=== PATIENT | male | born 1950 | race Caucasian/White ===

== ENCOUNTER → 2023-07-27 12:54 | Outpatient (REF) | payer MEDICARE, OTHER, SELFPAY | LOC: RAD 12:54 | PROVIDERS: ATTENDING PHYSICIAN Urology; FAMILY PHYSICIAN Internal Medicine | DX: N28.89 Other specified disorders of kidney and ureter (principal) | CPT/HCPCS: 74178; Q9967 ==

== ENCOUNTER → 2024-06-12 10:47 | Outpatient (REF) | payer MEDICARE, OTHER, SELFPAY ==
[2024-06-12 11:38] LABS: Urine Albumin Negative (Neg - Trace); Urine Bilirubin Negative (Negative); Urine Character Clear (Clear); Urine Color Yellow; Urine Glucose Negative (Negative); Urine Ketone Negative (Negative); Urine Leukocyte Negative (Negative); Urine Nitrite Negative (Negative); Urine Occult Blood Negative (Negative); Urine Urobilinogen Negative (Neg - 1+); Urine pH 6.5 (5.0-9.0)
== END ==
LOC: OLABWHC 10:47
PROVIDERS: ATTENDING PHYSICIAN Registered Nurse; FAMILY PHYSICIAN Family Medicine
DX: N40.0 Benign prostatic hyperplasia without lower urinary tract symptoms (principal); N32.81 Overactive bladder; R30.9 Painful micturition, unspecified
CPT/HCPCS: 81003; 87086

== ENCOUNTER → 2024-06-17 09:31 | Outpatient (REF) | payer MEDICARE, OTHER, SELFPAY ==
[2024-06-17 10:44] LABS: % Basophils 0.6 % (0-2); % Eosinophils 2.9 % (0-6); % Immature Granulocytes 0.4 % (0-0.5); % Lymphocytes 26.5 % (20.5-51.1); % Monocytes 11.1 % (1.7-9.3); % Neutrophils 58.5 % (42.2-75.2); Absolute Eosinophils 0.2 10^3/uL (0-0.7); Absolute Lymphocytes 1.8 10^3/uL (1.2-3.4); Absolute Monocytes 0.8 10^3/uL (0.1-0.6); Hematocrit 32.2 % (39.0-52.0); Hemoglobin 10.7 g/dL (13.0-18.0); Mean Corp Hgb Conc. 33.2 g/dL (33.0-37.0); Mean Corpuscular Hgb 31.9 pg (27.0-31.0); Mean Corpuscular Volume 96.1 fL (80.0-94.0); Mean Platelet Volume 10.4 fL (7.4-10.4); Nucleated Red Blood Cells % 0 % (-); Platelet Count 242 10^3/uL (130-400); Red Blood Cell Count 3.35 10^6/uL (4.70-6.10); Red Cell Dist. Width 12.8 % (11.5-14.5); White Blood Cell Count 6.8 10^3/uL (4.8-10.8)
[2024-06-17 10:56] LABS: ALT (SGPT) 17 U/L (0-50); AST (SGOT) 19 U/L (17-59); Alkaline Phosphatase 79 U/L (38-126); Blood Urea Nitrogen 19 mg/dl (9-20); Calcium 9.7 mg/dl (8.4-10.2); Carbon Dioxide 25 mmol/L (22-30); Chloride 103 mmol/L (98-107); Glucose 105 mg/dl (70-99); HDL Cholesterol 30 mg/dl; LDL Cholesterol, Calculated 73 mg/dl; Potassium 4.6 mmol/L (3.5-5.1); Sodium 138 mmol/L (135-145); Total Bilirubin 0.5 mg/dl (0.2-1.3); Total Cholesterol 120 mg/dl (50-199); Total Protein 6.2 g/dl (6.3-8.2); Triglyceride 87 mg/dl (10-149); Very Low Density Lipoprotein 17 mg/dl (0-30); eGFR > 60.00
[2024-06-17 16:16] LABS: Vitamin D, 25-OH*** > 126 ng/mL (30-80)
[2024-06-19 06:34] LABS: Keppra (Levetiracetam) 30 ug/mL (10-40)
[2024-06-19 06:53] LABS: Lamotrigine (Lamictal) 9.4 ug/mL (3.0-15.0)
== END ==
LOC: OLABWHC 09:31
PROVIDERS: ATTENDING PHYSICIAN Family Medicine
DX: E03.9 Hypothyroidism, unspecified (principal); I10 Essential (primary) hypertension; Z72.0 Tobacco use; G47.00 Insomnia, unspecified; J44.9 Chronic obstructive pulmonary disease, unspecified; F32.A Depression, unspecified; G40.909 Epilepsy, unspecified, not intractable, without status epilepticus; F41.1 Generalized anxiety disorder; E55.0 Rickets, active
CPT/HCPCS: 36415; 80053; 80061; 80175; 80177; 82306; 85025

== ENCOUNTER → 2024-07-22 12:12 | Outpatient (REF) | payer MEDICARE, OTHER, SELFPAY | LOC: RAD 12:12 | PROVIDERS: ATTENDING PHYSICIAN Urology; FAMILY PHYSICIAN Family Medicine | DX: N40.1 Benign prostatic hyperplasia with lower urinary tract symptoms (principal); N28.89 Other specified disorders of kidney and ureter | CPT/HCPCS: 74178; Q9967 ==

== ENCOUNTER 2024-09-30 06:11 | Day surgery (SDC) | payer MEDICARE, OTHER, SELFPAY ==
[2024-09-30 08:01] VITALS: BMI 27.1
[2024-09-30 08:02] VITALS: BMI 27.1
[2024-09-30 08:03] VITALS: BP 124/67
[2024-09-30 08:48] VITALS: BP 105/50
[2024-09-30 09:00] VITALS: BP 120/53
[2024-09-30 09:15] VITALS: BP 119/65
== END 2024-09-30 09:31 ==
LOC: GI 06:11
PROVIDERS: ATTENDING PHYSICIAN Internal Medicine Gastroenterology
DX: K22.70 Barrett's esophagus without dysplasia (principal); K44.9 Diaphragmatic hernia without obstruction or gangrene; K31.7 Polyp of stomach and duodenum; Z98.890 Other specified postprocedural states
CPT/HCPCS: 43239; 88305

== ENCOUNTER → 2025-01-27 09:28 | Outpatient (REF) | payer MEDICARE, OTHER, SELFPAY ==
[2025-01-27 11:31] LABS: TSH 1.99 uIU/ml (0.47-4.68)
== END ==
LOC: OLABWHC 09:28
PROVIDERS: ATTENDING PHYSICIAN Family Medicine
DX: E03.9 Hypothyroidism, unspecified (principal)
CPT/HCPCS: 36415; 84439; 84443

== ENCOUNTER → 2025-03-02 09:14 | Outpatient (REF) | payer MEDICARE, OTHER, SELFPAY ==
[2025-03-02 11:33] LABS: Hematocrit 24.7 % (39.0-52.0); Hemoglobin 7.4 g/dL (13.0-18.0); Mean Corp Hgb Conc. 30.0 g/dL (33.0-37.0); Mean Corpuscular Volume 79.4 fL (80.0-94.0); Platelet Count 393 10^3/uL (130-400); Red Cell Dist. Width 14.6 % (11.5-14.5)
[2025-03-02 12:14] LABS: Blood Urea Nitrogen 18 mg/dl (9-20); Calcium 9.1 mg/dl (8.4-10.2); Carbon Dioxide 24 mmol/L (22-30); Chloride 108 mmol/L (98-107); Glucose 92 mg/dl (70-99); Potassium 4.0 mmol/L (3.5-5.1); Sodium 139 mmol/L (135-145); eGFR > 60.00
[2025-03-02 12:24] LABS: PSA, Total - Screen 0.99 ng/ml (0.0-4.0)
[2025-03-02 12:59] LABS: Folate 6.8 ng/ml (2.76-20); Vitamin B12 529 pg/ml (239-931)
== END ==
LOC: OLABWHC 09:14
PROVIDERS: ATTENDING PHYSICIAN Family Medicine
DX: Z79.82 Long term (current) use of aspirin (principal); I25.10 Atherosclerotic heart disease of native coronary artery without angina pectoris; N28.89 Other specified disorders of kidney and ureter; J44.9 Chronic obstructive pulmonary disease, unspecified; E03.9 Hypothyroidism, unspecified; N40.0 Benign prostatic hyperplasia without lower urinary tract symptoms; I10 Essential (primary) hypertension; N32.81 Overactive bladder; E78.5 Hyperlipidemia, unspecified; D51.9 Vitamin B12 deficiency anemia, unspecified; Z12.5 Encounter for screening for malignant neoplasm of prostate
CPT/HCPCS: 36415; 80048; 82607; 82746; 85027; G0103

== ENCOUNTER 2025-03-03 12:33 | Emergency (ER) | payer MEDICARE, OTHER, SELFPAY ==
[2025-03-03 12:39] VITALS: BP 153/80
[2025-03-03 12:40] VITALS: BP 153/80
[2025-03-03 12:49] VITALS: BMI 25.9
[2025-03-03 12:56] LABS: Hematocrit 30.1 % (39.0-52.0); Hemoglobin 8.8 g/dL (13.0-18.0); Mean Corp Hgb Conc. 29.2 g/dL (33.0-37.0); Mean Corpuscular Volume 79.2 fL (80.0-94.0); Nucleated Red Blood Cells % 0 % (-); Platelet Count 453 10^3/uL (130-400); Red Cell Dist. Width 14.8 % (11.5-14.5)
[2025-03-03 13:00] VITALS: BP 139/86
[2025-03-03 13:12] LABS: ALT (SGPT) 20 U/L (0-50); AST (SGOT) 23 U/L (17-59); Albumin 4.8 g/dl (3.5-5.0); Alkaline Phosphatase 112 U/L (38-126); Blood Urea Nitrogen 20 mg/dl (9-20); Calcium 10.0 mg/dl (8.4-10.2); Carbon Dioxide 26 mmol/L (22-30); Chloride 105 mmol/L (98-107); Estimated Creatinine Clearance 65 ml/min; Glucose 114 mg/dl (70-99); Potassium 5.0 mmol/L (3.5-5.1); Sodium 138 mmol/L (135-145); Total Protein 8.0 g/dl (6.3-8.2); eGFR > 60.00
[2025-03-03 13:23] LABS: Troponin I 0.017 ng/ml
[2025-03-03 13:24] LABS: Lipase 108 U/L (23-300)
--- NOTE | 2025-03-03 14:30 | ED.GENMED ---
History of Present Illness
General
Chief Complaint: Abnormal Lab Value
Source: patient
Exam Limitations: none
Time Seen by Provider: 03/03/25 13:03
History of Present Illness
History of Present Illness:
75-year-old male presents from [facility] with chief complaint of fatigue. Outpatient labs demonstrated hemoglobin of 7.7. He denies any dark or tarry stools. Denies any chest pain or shortness of breath. He states his appetite has
decreased. There has been no vomiting. No other complaints at this time.
Past History
Past History
ED Past Medical History: COPD, GERD, HTN, Hypercholesterolemia, Seizures, Hypothyroidism, Psychiatric (Anxiety, Depression) and Other (Slight Dementia, Anemia, Esophageal strictures, Vertigo)
ED Past Surgical History: Cholecystectomy, Tonsilectomy and Other (Abd surgery for ulcers)
Social History
Tobacco: Smoker (Quit 2017)
Alcohol: None
Drug: None
Personal: Single
Living: [facility] (rehab)
Employment: Retired
Family History
Family History: Other (No significant)
Phy Exam
Physical Exam
Physical Exam:
General: Well-appearing male no acute respiratory
HEENT: Normal cephalic atraumatic
Heart: Regular rate and rhythm
Lungs: Clear no wheeze
Abdomen is soft nontender
Extremities: No cyanosis or edema
Course
Orders/Labs/Results
Orders:
Orders
03/03/25 12:40
Electrocardiogram (*1) Urgent
Reason for Study: Chest Pain
Cardiac Monitoring- Treatment ONCE
EKG- Treatment ONCE
IV Insert/Care/Rem.- Treatment PRN
03/03/25 12:47
Type And Crossmatch [Type+Screen] Urgent
Complete Blood Count/With Diff Urgent
Comprehensive Metabolic Panel Urgent
Lipase Urgent
Comment: ADD ON
Troponin I Urgent
03/03/25 13:04
Add On- LAB Urgent
Tests Added?: lipase
Abnormal Lab Results
03/03/25
12:47
RBC 3.80 L 10^6/uL
(4.70-6.10)
Hgb 8.8 L g/dL
(13.0-18.0)
Hct 30.1 L %
(39.0-52.0)
MCV 79.2 L fL
(80.0-94.0)
MCH 23.2 L pg
(27.0-31.0)
MCHC 29.2 L g/dL
(33.0-37.0)
RDW 14.8 H %
(11.5-14.5)
Plt Count 453 H 10^3/uL
(130-400)
Absolute Neuts (auto) 6.9 H 10^3/uL
(1.4-6.5)
Absolute Monos (auto) 0.7 H 10^3/uL
(0.1-0.6)
Lymphocytes % 16.2 L %
(20.5-51.1)
Glucose 114 H mg/dl
(70-99)
03/03/25 12:47
03/03/25 12:47
Vital Signs
Initial and Last Documented VS:
Initial Vital Signs
BP
153/80
03/03/25 12:39
Last Documented Vital Signs
Temp Pulse Resp BP Pulse Ox
97.8 F 73 17 139/86 97
03/03/25 12:40 03/03/25 14:10 03/03/25 13:30 03/03/25 13:00 03/03/25 13:30
MDM/Problems Addressed
Differential Diagnosis Includes:
Patient here with fatigue. Outpatient labs demonstrated hemoglobin is 7.4. Will recheck labs here otherwise patient looks nontoxic
*Pulse Oximetry
SaO2: 97
Oxygen Mode of Delivery: Room air
Patient hypoxic: no
*Critical Care Note
Total Time (30-74mins, 75-104mins- exclusive of procedures): Not Applicable
Update Note
Update Note:
Hemoglobin 8.8. Workup otherwise without significant findings. Vital signs are stable. EKG shows sinus rhythm without ischemic changes. No indication for admission. Recommend follow-up with doctor. Stable for discharge back to assisted living
ED Attending Note
-
Portions of this chart may have been created with voice recognition software.� Occasional wrong word or��sound alike� substitutions may have occurred due to the inherent limitations of voice recognition software.
Discharge Plan
Departure
Patient Disposition: Home (Routine Discharge)
Date of Disposition: 03/03/25
Time of Disposition: 14:31
Patient with high blood pressure during this ER visit?: No
Discharge Problem:
Fatigue
Prescriptions:
No Action
aspirin 81 MG tablet,delayed release (DR/EC)
81 mg PO DAILY
citalopram 10 MG tablet
15 mg PO DAILY
levothyroxine 25 MCG tablet
25 mcg PO DAILY
simethicone [Gas Relief 80 (simethicone)] 80 MG tablet,chewable
80 mg PO Q4HPRN PRN (Reason: gas pain)
acetaminophen 325 MG tablet
650 mg PO Q4HPRN PRN (Reason: mild pain/temp>100)
levetiracetam [Keppra] 750 mg Tablet
750 mg PO BID
finasteride 5 mg tablet
5 mg PO DAILY
magnesium hydroxide [Milk of Magnesia] 400 mg/5 mL Suspension
400 mg PO Q20IERS PRN (Reason: if no BM 3 days)
ipratropium bromide 17 mcg/actuation Hfa Aerosol Inhaler
2 puff INHALATION R BID
lamotrigine 200 mg Tablet
200 mg PO BID
melatonin 10 mg Tablet
10 mg PO HS
lorazepam 0.5 mg tablet
0.5 mg PO BID
pantoprazole 40 mg Tablet,Delayed Release (Dr/Ec)
40 mg PO DAILY
fluticasone propionate [Flonase] 50 mcg/actuation [place],Suspension
2 spray INTRANASAL DAILY
tamsulosin [Flomax] 0.4 mg Capsule
0.4 mg PO HS
Hemorrhoid Pads, Medicated
1 pad topical [id number] PRN (Reason: hemmorrhoids)
bisacodyl [Dulcolax (bisacodyl)] 10 mg Suppository
10 mg FL [id number] PRN (Reason: constipation)
Fleet Enema 19-7 gram/118 mL Enema
118 ml FL DAILYPRN PRN (Reason: if no bm by 3rd day give on day 4)
ibuprofen [Advil] 200 mg Tablet
600 mg PO DAILYPRN PRN (Reason: mild pain)
Balmex Adult Care 11.3 % Cream
1 applic TOPICAL [id number] PRN (Reason: buttock)
PreserVision AREDS 2,148 mcg-113 mg-45 mg-17.4mg Tablet
1 tab PO DAILY
Referrals:
Noel Mishra MD [Family Provider, Family Practice]
Activity Restrictions/Additional Instructions:
The hemoglobin today was 8.8. Please recheck this next week. Return if worse otherwise
Interventions
Interventions:
*General Assessment Last Done: 03/03/25 12:50
*ED- Fall Risk Assessment Last Done: 03/03/25 12:50
*ED COVID-19 Vaccine History Last Done: 03/03/25 12:50
*ED Influenza Vaccine History Last Done: 03/03/25 12:50
Discharge Date and Time
Print Language: [id number]
[2025-03-03 15:00] VITALS: BP 152/54
[2025-03-03 16:00] VITALS: BP 156/66
[2025-03-03 17:00] VITALS: BP 156/73
== END 2025-03-03 17:38 | disposition home or self-care (01) ==
LOC: EMR 12:33
PROVIDERS: Emergency Medicine; EMERGENCY PHYSICIAN Student in an Organized Health Care Education/Training Program; FAMILY PHYSICIAN Family Medicine
DX: R63.0 Anorexia (principal); I10 Essential (primary) hypertension; E78.00 Pure hypercholesterolemia, unspecified; J44.9 Chronic obstructive pulmonary disease, unspecified; F03.90 Unspecified dementia, unspecified severity, without behavioral disturbance, psychotic disturbance, mood disturbance, and anxiety; E03.9 Hypothyroidism, unspecified; K21.9 Gastro-esophageal reflux disease without esophagitis; K22.2 Esophageal obstruction; F41.9 Anxiety disorder, unspecified; F32.A Depression, unspecified; Z79.82 Long term (current) use of aspirin; Z68.25 Body mass index [BMI] 25.0-25.9, adult; Z87.891 Personal history of nicotine dependence
CPT/HCPCS: 99284; 80053; 83690; 84484; 85025; 86850; 86900; 86901; 93005

== ENCOUNTER → 2025-03-04 11:16 | Outpatient (REF) | payer OTHER, MEDICARE, SELFPAY ==
[2025-03-04 13:14] LABS: Hematocrit 25.1 % (39.0-52.0); Hemoglobin 7.4 g/dL (13.0-18.0); Mean Corp Hgb Conc. 29.5 g/dL (33.0-37.0); Mean Corpuscular Volume 78.7 fL (80.0-94.0); Nucleated Red Blood Cells % 0 % (-); Platelet Count 398 10^3/uL (130-400); Red Cell Dist. Width 14.6 % (11.5-14.5)
== END ==
LOC: OLABWHC 11:16
PROVIDERS: ATTENDING PHYSICIAN Family Medicine
DX: G40.909 Epilepsy, unspecified, not intractable, without status epilepticus (principal)
CPT/HCPCS: 36415; 80175; 80177; 85025

== ENCOUNTER → 2025-03-05 11:11 | Outpatient (REF) | payer MEDICARE, OTHER, SELFPAY ==
[2025-03-05 12:00] LABS: Urine Character Cloudy (Clear)
[2025-03-05 12:16] LABS: Urine Red Blood Cell 0-2 /HPF (0-2)
== END ==
LOC: OLABWHC 11:11
PROVIDERS: ATTENDING PHYSICIAN Registered Nurse; FAMILY PHYSICIAN Family Medicine
DX: R33.9 Retention of urine, unspecified (principal); N40.0 Benign prostatic hyperplasia without lower urinary tract symptoms
CPT/HCPCS: 81003; 81015; 87086

== ENCOUNTER → 2025-03-11 09:59 | Outpatient (REF) | payer MEDICARE, OTHER, SELFPAY ==
[2025-03-11 10:29] LABS: Hematocrit 23.9 % (39.0-52.0); Hemoglobin 7.2 g/dL (13.0-18.0); Mean Corp Hgb Conc. 30.1 g/dL (33.0-37.0); Mean Corpuscular Volume 79.1 fL (80.0-94.0); Platelet Count 466 10^3/uL (130-400); Red Cell Dist. Width 14.8 % (11.5-14.5)
== END ==
LOC: OLABWHC 09:59
PROVIDERS: ATTENDING PHYSICIAN Family Medicine
DX: I25.10 Atherosclerotic heart disease of native coronary artery without angina pectoris (principal); K64.9 Unspecified hemorrhoids; Z79.82 Long term (current) use of aspirin; D64.9 Anemia, unspecified; E03.9 Hypothyroidism, unspecified; E78.5 Hyperlipidemia, unspecified
CPT/HCPCS: 36415; 85027

== ENCOUNTER → 2025-03-23 11:03 | Outpatient (REF) | payer MEDICARE, OTHER, SELFPAY ==
[2025-03-23 11:50] LABS: Hematocrit 24.4 % (39.0-52.0); Hemoglobin 7.0 g/dL (13.0-18.0); Mean Corp Hgb Conc. 28.7 g/dL (33.0-37.0); Mean Corpuscular Volume 81.6 fL (80.0-94.0); Platelet Count 395 10^3/uL (130-400); Red Cell Dist. Width 15.3 % (11.5-14.5)
== END ==
LOC: OLABWHC 11:03
PROVIDERS: ATTENDING PHYSICIAN Family Medicine
DX: J44.9 Chronic obstructive pulmonary disease, unspecified (principal); E78.5 Hyperlipidemia, unspecified; I10 Essential (primary) hypertension; F03.90 Unspecified dementia, unspecified severity, without behavioral disturbance, psychotic disturbance, mood disturbance, and anxiety
CPT/HCPCS: 36415; 85027

== ENCOUNTER → 2025-03-30 09:39 | Outpatient (REF) | payer MEDICARE, OTHER, SELFPAY ==
[2025-03-30 12:22] LABS: Hematocrit 29.8 % (39.0-52.0); Hemoglobin 8.5 g/dL (13.0-18.0); Mean Corp Hgb Conc. 28.5 g/dL (33.0-37.0); Mean Corpuscular Volume 82.8 fL (80.0-94.0); Platelet Count 397 10^3/uL (130-400); Red Cell Dist. Width 19.7 % (11.5-14.5)
== END ==
LOC: OLABWHC 09:39
PROVIDERS: ATTENDING PHYSICIAN Family Medicine
DX: E03.9 Hypothyroidism, unspecified (principal); I10 Essential (primary) hypertension; E78.5 Hyperlipidemia, unspecified; K64.9 Unspecified hemorrhoids; Z79.82 Long term (current) use of aspirin; I25.10 Atherosclerotic heart disease of native coronary artery without angina pectoris
CPT/HCPCS: 36415; 85027

== ENCOUNTER 2025-04-13 06:27 | Day surgery (SDC) | payer MEDICARE, OTHER, SELFPAY | END 2025-04-13 12:53 | disposition home or self-care (01) | LOC: GI 06:27 | PROVIDERS: ATTENDING PHYSICIAN Internal Medicine Gastroenterology | DX: Z12.11 Encounter for screening for malignant neoplasm of colon (principal); D12.0 Benign neoplasm of cecum; D12.2 Benign neoplasm of ascending colon; K62.1 Rectal polyp; R19.5 Other fecal abnormalities; K22.70 Barrett's esophagus without dysplasia; D50.0 Iron deficiency anemia secondary to blood loss (chronic); K57.50 Diverticulosis of both small and large intestine without perforation or abscess without bleeding; R12 Heartburn; K22.2 Esophageal obstruction; K44.9 Diaphragmatic hernia without obstruction or gangrene; K31.7 Polyp of stomach and duodenum; Z98.890 Other specified postprocedural states; Z86.0100 Personal history of colon polyps, unspecified | CPT/HCPCS: 45385; 43239; 88305 ==